=== PATIENT | female | born 1940 | race Caucasian/White ===

== ENCOUNTER → 2018-03-22 12:28 | Outpatient (CLI) | payer MEDICARE, OTHER, SELFPAY | PROVIDERS: Family Provider Family Medicine; PCP Family Medicine; Referring Provider Family Medicine; Visit Provider Family Medicine | DX: M50.90 Cervical disc disorder, unspecified, unspecified cervical region (principal); R20.2 Paresthesia of skin | CPT/HCPCS: 95885; 95886; 95911 ==

== ENCOUNTER 2018-04-08 15:27 | Emergency (ER) | payer MEDICARE, OTHER, SELFPAY ==
[2018-04-08 15:33] VITALS: BP 161/88; PULSE 69; RESP 20; TEMP 36.7; O2SAT 96; BMI 32.9
--- NOTE | 2018-04-08 17:42 | ED.BACK ---
HPI - Back Pain/Injury <MAXIMUS Gonzales - Last Filed: 04/08/18 23:06> General Chief Complaint: Back Pain/Injury Stated Complaint: STATES SEVERE BACK PAIN,STATES FUSED LOWER SHANTELL Time Seen by Provider: 04/08/18 15:54 Source: patient and family Mode of arrival: wheelchair Limitations: no limitations History of Present Illness HPI Narrative: Patient presents with chief complaint of lower back pain. 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 She denies any numbness, tingling, incontinence or saddle anesthesia. She denies fevers chest pain or shortness of breath. She denies nausea, vomiting, diarrhea or dizziness. She states she took pain medication at home, but is not sure what it was. She thinks it was OxyContin. She denies any weakness on 1 side. The pain use to radiate down 1 of her legs, but it no longer does after she took the pain medication. She states that this pain got worse after she was in a new chair at work for several days. She denies any falls or trauma. She denies any urinary symptoms including dysuria, urgency or frequency. Related Data Previous Rx's Medication Instructions Recorded conjugated estrogens [Premarin] 0.625 mg PO QDAY #90 tab 03/14/17 estradiol [Vagifem] 10 mcg VAGINAL SEE INSTRUCTIONS 08/31/17 #24 tab meloxicam [Mobic] 0 PO [facility] #30 tab 01/24/18 methocarbamol [Robaxin] 500 mg PO Q6H PRN #10 tab 04/08/18 Allergies Allergy/AdvReac Type Severity Reaction Status Date / Time ciprofloxacin [CIPROFLOXACIN] Allergy Unknown Unverified 03/22/18 14:48 nitrofurantoin Allergy Unknown Unverified 03/22/18 14:48 [NITROFURANTOIN] prednisone [PREDNISONE] Allergy Unknown PSYCHOTIC Unverified 03/22/18 14:48 Sulfa (Sulfonamide Allergy Unknown Unverified 03/22/18 14:48 Antibiotics) [SULFA (SULFONAMIDE ANTIBIOTICS)] PAIN RX Allergy Unknown PSYCHOTROPIC Uncoded 03/22/18 14:48 SYMPTOMS Review of Systems <MAXIMUS Gonzales - Last Filed: 04/08/18 23:06> Review of Systems GENERAL: Denies chills, fatigue, malaise, fever, sweats. HEENT: Denies sinus pain, ear pain, sore throat, difficulty swallowing, dizziness. RESPIRATORY: Denies dyspnea, cough, wheezing, hemoptysis, sputum. CARDIOVASCULAR: Denies chest pain, palpitations, orthopnea, edema, GASTROINTESTINAL: Denies nausea, vomiting, abdominal pain, diarrhea, constipation, melena. : Denies dysuria, frequency, incontinence, hematuria, urinary retention. MUSCULOSKELETAL: See HPI SKIN: see hpi Neuro: See HPI PSYCHIATRIC: No concerning psychosocial issues. 12 point review of systems is negative except for those stated above Exam <Sultana Lyons, [employer]MENT [employer]NAGER[employer] - Last Filed: 04/08/18 23:06> Narrative Exam Narrative: GENERAL: This is a well-nourished, well-developed patient, in no distress sitting in wheelchair with daughter at bedside. HEAD: Atraumatic. Normocephalic. No temporal or scalp tenderness. EYES: Pupils equal round and reactive. Extraocular motions intact. No scleral icterus. No injection or drainage. ENT: Nose without bleeding, purulent drainage or septal hematoma. Throat without erythema, tonsillar hypertrophy or exudate. Uvula midline. Airway patent. NECK: Trachea midline. No JVD or lymphadenopathy. Supple, nontender, no meningeal signs. CARDIOVASCULAR: Regular rate and rhythm without murmurs, gallops, or rubs. RESPIRATORY: Clear to auscultation. Breath sounds equal bilaterally. No wheezes, rales, or rhonchi. GASTROINTESTINAL: Abdomen soft, non-tender, nondistended. No hepato-splenomegaly, or palpable masses. No guarding. EXTREMITIES: No clubbing, cyanosis, or edema. No joint tenderness, effusion, or edema noted. BACK: No pain to C-spine T-spine or L-spine palpation no palpable step-offs or deformities. Pain on palpation of bilateral paraspinal muscles in the lumbar region. NEURO: AOx3. Patellar and radial reflexes are intact bilaterally. Strength is equal upper and lower extremities bilaterally. SKIN: No rash or erythema. No rash, erythema or ecchymosis noted lower back. Initial Vital Signs Initial Vital Signs: Vital Signs Temperature 98.1 F 04/08/18 15:33 Pulse Rate 69 04/08/18 15:33 Respiratory Rate 20 04/08/18 15:33 Blood Pressure 161/88 H 04/08/18 15:33 Pulse Oximetry 96 04/08/18 15:33 <Rodrick Campbell DO - Last Filed: 04/09/18 01:38> Initial Vital Signs Initial Vital Signs: Vital Signs Temperature 98.1 F 04/08/18 15:33 Pulse Rate 69 04/08/18 15:33 Respiratory Rate 20 04/08/18 15:33 Blood Pressure 161/88 H 04/08/18 15:33 Pulse Oximetry 96 04/08/18 15:33 Course <MAXIMUS Gonzales - Last Filed: 04/08/18 23:06> Hospital Course: Patient presented with lower back pain. X-rays were obtained in order to rule out a compression fracture. Of 1st of vision declined pain medication, but then changed her mind. I ordered Robaxin, but that was not available. Thus I gave her an oxycodone. She was able to ambulate afterwards easily unsteadily with a walker. She stated pain relief with oxycodone. She requested to be discharged home. Did not have any red flags on exam. She was discharged with prescriptions for Robaxin as well as a take home pack of oxycodone. Orders Ordered: ED Orders 04/08/18 18:02 XR lumbar spine 2-3V Stat Discontinued Medications Methocarbamol (Robaxin) 750 mg PO NOW ONE Stop: 04/08/18 18:04 Last Admin: 04/08/18 18:34 Dose: Oxycodone/Acetaminophen (Percocet 5/325) 1 tab PO NOW ONE Stop: 04/08/18 18:30 Last Admin: 04/08/18 18:42 Dose: 1 tab Oxycodone/Acetaminophen (Endocet 5/325 Prepack) 1 bottle MISC SEEINSTR ONE Stop: 04/08/18 19:13 Last Admin: 04/08/18 19:25 Dose: 1 bottle Vital Signs - 8 hr 04/08/18 18:48 Pulse Rate 63 Respiratory Rate 14 Blood Pressure [Left Arm] 133/75 H Pulse Oximetry 98 <Rodrick Campbell DO - Last Filed: 04/09/18 01:38> Orders Ordered: ED Orders 04/08/18 18:02 XR lumbar spine 2-3V Stat Discontinued Medications Methocarbamol (Robaxin) 750 mg PO NOW ONE Stop: 04/08/18 18:04 Last Admin: 04/08/18 18:34 Dose: Oxycodone/Acetaminophen (Percocet 5/325) 1 tab PO NOW ONE Stop: 04/08/18 18:30 Last Admin: 04/08/18 18:42 Dose: 1 tab Oxycodone/Acetaminophen (Endocet 5/325 Prepack) 1 bottle MISC SEEINSTR ONE Stop: 04/08/18 19:13 Last Admin: 04/08/18 19:25 Dose: 1 bottle Vital Signs - 8 hr 04/08/18 18:48 Pulse Rate 63 Respiratory Rate 14 Blood Pressure [Left Arm] 133/75 H Pulse Oximetry 98 MDM - Back Pain/Injury <MAXIMUS Gonzales - Last Filed: 04/08/18 23:06> Imaging Data lumbar xray: Radiologist's impression: [address] [address] XRay Report Signed Patient: Dina Madrid MR#: [id number] : 1940 Acct:[id number] Age/Sex: 78 / F Date of Service: 04/08/18 Loc: ED Accession Number: [id number] Procedure: XR lumbar spine 2-3V Ordering Provider: Sultana Lyons PROCEDURE: XR LUMBAR SPINE 2-3V INDICATIONS: lumbar pain TECHNIQUE: 3 views of the lumbar spine were acquired. COMPARISON: None. FINDINGS: Bones: L5 [id number] vertebrae are present. There is normal bony alignment. No vertebral body compression fractures. Mild degenerative changes present throughout the lumbar spine including intervertebral disc space narrowing and osteophytosis. No suspicious bony lesions. Soft tissues: Overlying bowel gas pattern is normal. Atheromatous calcifications are present throughout the abdominal aorta. Abandoned nerve stimulator leads are present at L4-5. IMPRESSION: 1. Degenerative change. 2. Aortic atherosclerosis. Dictated by: Erin Zepeda M.D. on 04/08/2018 at 18:31 Approved by: Erin Zepeda M.D. on 04/08/2018 at 18:32 [facility] Narrative Medical decision making narrative: Patient had a stable exam, intact reflexes, no red flags on exam. Requested urine sample was not able to be given. Patient had relief with oxycodone and was stable with ambulation trial. Discussed at length with patient return precautions of numbness, tingling, incontinence or saddle anesthesia. Patient and daughter stated understanding of plan of care in had no questions or concerns at this time. Discussed follow-up with primary care as patient may need further imaging or physical therapy referral. Discharge Plan Departure Patient Disposition: Home, Self-Care Clinical Impression: Back pain Discharge Date/Time: 04/08/18 19:26 Interventions: ED Discharge Assessment Last Done: 04/08/18 19:25 Instructions: DI for Low Back Pain, Activity May Be Better then Rest for Low Back Pain Recovery, Exercise May Reduce Risk of Low Back Pain Activity Restrictions/Additional Instructions: I have given you prescriptions for pain medication as well as muscle relaxers. Please be careful as this can make you tired. Use them carefully and please do not take at the same time. I would like you to come back if you notice any new numbness, tingling, incontinence or any anesthesia of the saddle area. This would be numbness where you sit on a horse. I would like you to follow up with primary care provider as you may need further imaging or physical therapy. Prescriptions: New methocarbamol [Robaxin] 500 mg tablet 500 mg PO Q6H PRN (Reason: muscle spasm) Qty: 10 RF: 0 No Action conjugated estrogens [Premarin] 0.625 MG tablet 0.625 mg PO QDAY Qty: 90 RF: 3 estradiol [Vagifem] 10 MCG tablet 10 mcg Vaginal SEE INSTRUCTIONS Qty: 24 RF: 3 meloxicam [Mobic] 15 MG tablet PO [facility] Qty: 30 RF: 0 Referrals: Shelly Plunkett DO [Primary Care Provider] - <Rodrick Campbell DO - Last Filed: 04/09/18 01:38> Cosign ED Attending Arias Attestation: I was immediately available in the department for consultation. Documentation has been reviewed. I agree with assessment and plan.
--- NOTE | 2018-04-08 18:02 | DI.RAD.S_ITS ---
PROCEDURE: XR LUMBAR SPINE 2-3V INDICATIONS: lumbar pain TECHNIQUE: 3 views of the lumbar spine were acquired. COMPARISON: None. FINDINGS: Bones: L5 [id number] vertebrae are present. There is normal bony alignment. No vertebral body compression fractures. Mild degenerative changes present throughout the lumbar spine including intervertebral disc space narrowing and osteophytosis. No suspicious bony lesions. Soft tissues: Overlying bowel gas pattern is normal. Atheromatous calcifications are present throughout the abdominal aorta. Abandoned nerve stimulator leads are present at L4-5. IMPRESSION: 1. Degenerative change. 2. Aortic atherosclerosis. Dictated by: Erin Zepeda M.D. on 04/08/2018 at 18:31 Approved by: Erin Zepeda M.D. on 04/08/2018 at 18:32
[2018-04-08] MEDS: OXYCODONE/ACETAMINOPHEN 5/325 TABLET 1 TAB PO (18:42)
[2018-04-08 18:48] VITALS: BP 133/75; PULSE 63; RESP 14; O2SAT 98
--- NOTE | 2018-04-08 19:15 | ED_ITS ---
HPI - Back Pain/Injury <MAXIMUS Gonzales - Last Filed: 04/08/18 23:06> General Chief Complaint: Back Pain/Injury Stated Complaint: STATES SEVERE BACK PAIN,STATES FUSED LOWER SHANTELL Time Seen by Provider: 04/08/18 15:54 Source: patient and family Mode of arrival: wheelchair Limitations: no limitations History of Present Illness HPI Narrative: Patient presents with chief complaint of lower back pain. 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 She denies any numbness, tingling, incontinence or saddle anesthesia. She denies fevers chest pain or shortness of breath. She denies nausea, vomiting, diarrhea or dizziness. She states she took pain medication at home, but is not sure what it was. She thinks it was OxyContin. She denies any weakness on 1 side. The pain use to radiate down 1 of her legs, but it no longer does after she took the pain medication. She states that this pain got worse after she was in a new chair at work for several days. She denies any falls or trauma. She denies any urinary symptoms including dysuria, urgency or frequency. Related Data Previous Rx's Medication Instructions Recorded conjugated estrogens [Premarin] 0.625 mg PO QDAY #90 tab 03/14/17 estradiol [Vagifem] 10 mcg VAGINAL SEE INSTRUCTIONS 08/31/17 #24 tab meloxicam [Mobic] 0 PO [facility] #[facility] tab 01/24/18 methocarbamol [Robaxin] 500 mg PO Q6H PRN #10 tab 04/08/18 Allergies Allergy/AdvReac Type Severity Reaction Status Date / Time ciprofloxacin [CIPROFLOXACIN] Allergy Unknown Unverified 03/22/18 14:48 nitrofurantoin Allergy Unknown Unverified 03/22/18 14:48 [NITROFURANTOIN] prednisone [PREDNISONE] Allergy Unknown PSYCHOTIC Unverified 03/22/18 14:48 Sulfa (Sulfonamide Allergy Unknown Unverified 03/22/18 14:48 Antibiotics) [SULFA (SULFONAMIDE ANTIBIOTICS)] PAIN RX Allergy Unknown PSYCHOTROPIC Uncoded 03/22/18 14:48 SYMPTOMS Review of Systems <MAXIMUS Gonzales - Last Filed: 04/08/18 23:06> Review of Systems GENERAL: Denies chills, fatigue, malaise, fever, sweats. HEENT: Denies sinus pain, ear pain, sore throat, difficulty swallowing, dizziness. RESPIRATORY: Denies dyspnea, cough, wheezing, hemoptysis, sputum. CARDIOVASCULAR: Denies chest pain, palpitations, orthopnea, edema, GASTROINTESTINAL: Denies nausea, vomiting, abdominal pain, diarrhea, constipation, melena. : Denies dysuria, frequency, incontinence, hematuria, urinary retention. MUSCULOSKELETAL: See HPI SKIN: see hpi Neuro: See HPI PSYCHIATRIC: No concerning psychosocial issues. 12 point review of systems is negative except for those stated above Exam <Sultana Lyons, [employer] GLASS SILVERER-BC - Last Filed: 04/08/18 23:06> Narrative Exam Narrative: GENERAL: This is a well-nourished, well-developed patient, in no distress sitting in wheelchair with daughter at bedside. HEAD: Atraumatic. Normocephalic. No temporal or scalp tenderness. EYES: Pupils equal round and reactive. Extraocular motions intact. No scleral icterus. No injection or drainage. ENT: Nose without bleeding, purulent drainage or septal hematoma. Throat without erythema, tonsillar hypertrophy or exudate. Uvula midline. Airway patent. NECK: Trachea midline. No JVD or lymphadenopathy. Supple, nontender, no meningeal signs. CARDIOVASCULAR: Regular rate and rhythm without murmurs, gallops, or rubs. RESPIRATORY: Clear to auscultation. Breath sounds equal bilaterally. No wheezes , rales, or rhonchi. GASTROINTESTINAL: Abdomen soft, non-tender, nondistended. No hepato-splenomegaly , or palpable masses. No guarding. EXTREMITIES: No clubbing, cyanosis, or edema. No joint tenderness, effusion, or edema noted. BACK: No pain to C-spine T-spine or L-spine palpation no palpable step-offs or deformities. Pain on palpation of bilateral paraspinal muscles in the lumbar region. NEURO: AOx3. Patellar and radial reflexes are intact bilaterally. Strength is equal upper and lower extremities bilaterally. SKIN: No rash or erythema. No rash, erythema or ecchymosis noted lower back. Initial Vital Signs Initial Vital Signs: Vital Signs Temperature 98.1 F 04/08/18 15:33 Pulse Rate 69 04/08/18 15:33 Respiratory Rate 20 04/08/18 15:33 Blood Pressure 161/88 H 04/08/18 15:33 Pulse Oximetry 96 04/08/18 15:33 <Rodrick Campbell DO - Last Filed: 04/09/18 01:38> Initial Vital Signs Initial Vital Signs: Vital Signs Temperature 98.1 F 04/08/18 15:33 Pulse Rate 69 04/08/18 15:33 Respiratory Rate 20 04/08/18 15:33 Blood Pressure 161/88 H 04/08/18 15:33 Pulse Oximetry 96 04/08/18 15:33 Course <MAXIMUS Gonzales - Last Filed: 04/08/18 23:06> Hospital Course: Patient presented with lower back pain. X-rays were obtained in order to rule out a compression fracture. Of 1st of vision declined pain medication, but then changed her mind. I ordered Robaxin, but that was not available. Thus I gave her an oxycodone. She was able to ambulate afterwards easily unsteadily with a walker. She stated pain relief with oxycodone. She requested to be discharged home. Did not have any red flags on exam. She was discharged with prescriptions for Robaxin as well as a take home pack of oxycodone. Orders Ordered: ED Orders 04/08/18 18:02 XR lumbar spine 2-3V Stat Discontinued Medications Methocarbamol (Robaxin) 750 mg PO NOW ONE Stop: 04/08/18 18:04 Last Admin: 04/08/18 18:34 Dose: Oxycodone/Acetaminophen (Percocet 5/325) 1 tab PO NOW ONE Stop: 04/08/18 18:30 Last Admin: 04/08/18 18:42 Dose: 1 tab Oxycodone/Acetaminophen (Endocet 5/325 Prepack) 1 bottle MISC SEEINSTR ONE Stop: 04/08/18 19:13 Last Admin: 04/08/18 19:25 Dose: 1 bottle Vital Signs - 8 hr 04/08/18 18:48 Pulse Rate 63 Respiratory Rate 14 Blood Pressure [Left Arm] 133/75 H Pulse Oximetry 98 <Rodrick Campbell DO - Last Filed: 04/09/18 01:38> Orders Ordered: ED Orders 04/08/18 18:02 XR lumbar spine 2-3V Stat Discontinued Medications Methocarbamol (Robaxin) 750 mg PO NOW ONE Stop: 04/08/18 18:04 Last Admin: 04/08/18 18:34 Dose: Oxycodone/Acetaminophen (Percocet 5/325) 1 tab PO NOW ONE Stop: 04/08/18 18:30 Last Admin: 04/08/18 18:42 Dose: 1 tab Oxycodone/Acetaminophen (Endocet 5/325 Prepack) 1 bottle MISC SEEINSTR ONE Stop: 04/08/18 19:13 Last Admin: 04/08/18 19:25 Dose: 1 bottle Vital Signs - 8 hr 04/08/18 18:48 Pulse Rate 63 Respiratory Rate 14 Blood Pressure [Left Arm] 133/75 H Pulse Oximetry 98 MDM - Back Pain/Injury <MAXIMUS Gonzales - Last Filed: 04/08/18 23:06> Imaging Data lumbar xray: Radiologist's impression: [address] [address] XRay Report Signed Patient: Dina Madrid MR#: [id number] : 1940 Acct:[id number] Age/Sex: 78 / F Date of Service: 04/08/18 Loc: ED Accession Number: [id number] Procedure: XR lumbar spine 2-3V Ordering Provider: Sultana Lyons PROCEDURE: XR LUMBAR SPINE 2-3V INDICATIONS: lumbar pain TECHNIQUE: 3 views of the lumbar spine were acquired. COMPARISON: None. FINDINGS: Bones: L5 [id number] vertebrae are present. There is normal bony alignment. No vertebral body compression fractures. Mild degenerative changes present throughout the lumbar spine including intervertebral disc space narrowing and osteophytosis. No suspicious bony lesions. Soft tissues: Overlying bowel gas pattern is normal. Atheromatous calcifications are present throughout the abdominal aorta. Abandoned nerve stimulator leads are present at L4-5. IMPRESSION: 1. Degenerative change. 2. Aortic atherosclerosis. Dictated by: Erin Zepeda M.D. on 04/08/2018 at 18:31 Approved by: Erin Zepeda M.D. on 04/08/2018 at 18:32 [facility] Narrative Medical decision making narrative: Patient had a stable exam, intact reflexes, no red flags on exam. Requested urine sample was not able to be given. Patient had relief with oxycodone and was stable with ambulation trial. Discussed at length with patient return precautions of numbness, tingling, incontinence or saddle anesthesia. Patient and daughter stated understanding of plan of care in had no questions or concerns at this time. Discussed follow- up with primary care as patient may need further imaging or physical therapy referral. Discharge Plan Departure Patient Disposition: Home, Self-Care Clinical Impression: Back pain Discharge Date/Time: 04/08/18 19:26 Interventions: ED Discharge Assessment Last Done: 04/08/18 19:25 Instructions: DI for Low Back Pain, Activity May Be Better then Rest for Low Back Pain Recovery, Exercise May Reduce Risk of Low Back Pain Activity Restrictions/Additional Instructions: I have given you prescriptions for pain medication as well as muscle relaxers. Please be careful as this can make you tired. Use them carefully and please do not take at the same time. I would like you to come back if you notice any new numbness, tingling, incontinence or any anesthesia of the saddle area. This would be numbness where you sit on a horse. I would like you to follow up with primary care provider as you may need further imaging or physical therapy. Prescriptions: New methocarbamol [Robaxin] 500 mg tablet 500 mg PO Q6H PRN (Reason: muscle spasm) Qty: 10 RF: 0 No Action conjugated estrogens [Premarin] 0.625 MG tablet 0.625 mg PO QDAY Qty: 90 RF: 3 estradiol [Vagifem] 10 MCG tablet 10 mcg Vaginal SEE INSTRUCTIONS Qty: 24 RF: 3 meloxicam [Mobic] 15 MG tablet PO [facility] Qty: 30 RF: 0 Referrals: Shelly Plunkett DO [Primary Care Provider] - <Rodrick Campbell DO - Last Filed: 04/09/18 01:38> Cosign ED Attending Arias Attestation: I was immediately available in the department for consultation. Documentation has been reviewed. I agree with assessment and plan.
[2018-04-08] MEDS: OXYCODONE/APAP 5/325 PREPACK 1 BOTTLE MISC (19:25)
== END 2018-04-08 19:26 | disposition home or self-care (01) ==
PROVIDERS: Emergency Provider Nurse Practitioner Family; Family Provider Family Medicine; PCP Family Medicine
DX: M54.5 Low back pain (principal)
CPT/HCPCS: 72100; 99282; 99283

== ENCOUNTER → 2018-05-01 12:34 | Outpatient (CLI) | payer MEDICARE, OTHER, SELFPAY ==
--- NOTE | 2018-05-01 12:49 | DI.CT.S_ITS ---
PROCEDURE: CT LUMBAR SPINE W CON INDICATIONS: back pain TECHNIQUE: After the administration of intravenous Isovue contrast, 3 mm thick sections acquired through the levels of interest. Sagittal and coronal reformats were then constructed. For radiation dose reduction, the following was used: automated exposure control. COMPARISON: [facility], CR, XR LUMBAR SPINE 2-3V, 04/08/2018, 17:55. FINDINGS: Image quality: Excellent. There is trace retrolisthesis of L2 on L3, L3 on L4 and L5 on S1. [id number] disc space narrowing is present from L1-2 through L3-4 as well a severe at L5-S1. There no visualized fractures or dislocations. Posterior disc osteophyte complex as well as small focus of ligament calcification is present at L1-2. Disc bulges are present at L2-3, L3-4 including superimposed protrusion/extrusion in the left posterior paracentral aspect. Disc bulges are present at L4-5 and L5-S1. Moderate to severe spinal stenosis is present at L1 to, L2-3, severe L3-4, L4-5. Severe bilateral foraminal narrowing, right greater than left is present at L1 to, severe left and moderate to severe right L2-3, severe bilateral, right greater than left L3-4, severe bilateral L4-5 and severe bilateral L5-S1. Visualized soft tissues within the abdomen and pelvis are grossly unremarkable. Presumed neural stimulator wires are noted at the level of L4-5, but appear disconnected from the spinal canal. These appear to represent abandoned wires. IMPRESSION: 1. Multilevel disc bulges including protrusion/extrusion at L3-4 causing severe spinal stenosis and compromise of the left lateral recess. 2. Significant multilevel foraminal narrowing, secondary to facet arthropathy. 3. Presumed abandoned leads from prior neural stimulator as above. Dictated by: Shannon Godoy M.D. on 05/01/2018 at 17:01 Approved by: Shannon Godoy M.D. on 05/01/2018 at 17:06
[2018-05-01 13:29] LABS: BUN Creatinine Ratio 18.6 (6-22); Blood Urea Nitrogen 13 mg/dL (7-17); Estimated Glomerular Filt Rate > 60.0 mL/min (>60)
== END ==
PROVIDERS: Family Provider Family Medicine; PCP Family Medicine; Visit Provider Family Medicine
DX: M54.9 Dorsalgia, unspecified (principal); M51.26 Other intervertebral disc displacement, lumbar region; M48.061 Spinal stenosis, lumbar region without neurogenic claudication; Z01.812 Encounter for preprocedural laboratory examination
CPT/HCPCS: 36415; 72132; 82565; 84520; Q9967